=== PATIENT | female | born 1990 | race Two or more races ===

== ENCOUNTER 2019-05-11 10:06 | Emergency (ER) | payer OTHER ==
[~2019-05-11] VITALS: Ht 160 cm; Wt 97.5 kg
== END 2019-05-11 14:27 | disposition home or self-care (01) ==
LOC: ER 10:06
DX: K52.9 Noninfective gastroenteritis and colitis, unspecified (principal)

== ENCOUNTER → 2019-05-27 | Outpatient (CLI) | payer OTHER | END | disposition home or self-care (01) | LOC: PRENATAL 05-25 08:30 | DX: O99.212 Obesity complicating pregnancy, second trimester (principal) ==

== ENCOUNTER 2019-08-26 11:43 | Inpatient (IN) | payer OTHER ==
[~2019-08-26] VITALS: Ht 162.6 cm; Wt 3.2 kg
[2019-08-26] MEDS ORDERED: PRENATAL TABLE1 EAC1 (13:39)
[2019-09-01] MEDS ORDERED: PERCOCET 5-3251 EACH PO (06:56)
== END 2019-09-01 11:49 | disposition home or self-care (01) | DRG 788 ==
LOC: LDR 11:43 → OB/GYN 08-30 10:36
PROVIDERS: ADMIT Specialist
PROC: 4A1HXCZ Monitoring of Products of Conception, Cardiac Rate, External Approach (ICD-10-PCS; 2019-08-26)
PROC: BY4FZZZ Ultrasonography of Third Trimester, Single Fetus (ICD-10-PCS; 2019-08-27)
PROC: 10D00Z1 Extraction of Products of Conception, Low, Open Approach (ICD-10-PCS; principal; 2019-08-29 08:00)
DX: O82 Encounter for cesarean delivery without indication (principal); O14.14 Severe pre-eclampsia complicating childbirth; Z3A.36 36 weeks gestation of pregnancy; Z37.0 Single live birth; Z22.330 Carrier of Group B streptococcus

== ENCOUNTER 2021-09-14 20:16 | Emergency (ER) | payer OTHER ==
[~2021-09-14] VITALS: Ht 157.5 cm; Wt 97.5 kg
[~2021-09-14 20:16] MED LIST: PERCOCET 5-3251 EACH PO; PRENATAL TABLE1 EAC1
== END 2021-09-14 22:49 | disposition home or self-care (01) ==
LOC: ER 20:16
DX: N83.202 Unspecified ovarian cyst, left side (principal); N83.201 Unspecified ovarian cyst, right side

== ENCOUNTER 2022-11-04 09:23 | Emergency (ER) | payer OTHER ==
[~2022-11-04] VITALS: Ht 160 cm; Wt 98.9 kg
== END 2022-11-04 14:23 | disposition home or self-care (01) ==
LOC: ER 09:23
DX: O26.891 Other specified pregnancy related conditions, first trimester (principal); Z3A.11 11 weeks gestation of pregnancy; B34.9 Viral infection, unspecified; Z88.6 Allergy status to analgesic agent; Z20.822 Contact with and (suspected) exposure to COVID-19

== ENCOUNTER 2023-01-03 07:53 | Outpatient (CLI) | payer OTHER | END 2023-01-03 09:15 | disposition home or self-care (01) | LOC: PRENATAL 07:53 | PROVIDERS: ATTEND Obstetrics & Gynecology Maternal & Fetal Medicine | DX: O35.9XX0 Maternal care for (suspected) fetal abnormality and damage, unspecified, not applicable or unspecified (principal); O35.3XX0 Maternal care for (suspected) damage to fetus from viral disease in mother, not applicable or unspecified; O09.219 Supervision of pregnancy with history of pre-term labor, unspecified trimester; O14.90 Unspecified pre-eclampsia, unspecified trimester; Z3A.20 20 weeks gestation of pregnancy ==

== ENCOUNTER 2023-01-22 17:32 | Outpatient (CLI) | payer OTHER | END 2023-01-23 09:13 | disposition home or self-care (01) | LOC: OBS/DEL 17:32 | PROVIDERS: ATTEND Specialist | DX: O26.892 Other specified pregnancy related conditions, second trimester (principal); R10.2 Pelvic and perineal pain; Z3A.23 23 weeks gestation of pregnancy; Z88.6 Allergy status to analgesic agent ==

== ENCOUNTER 2023-02-12 21:55 | Outpatient (CLI) | payer OTHER ==
[2023-02-12] MEDS ORDERED: PRENATAL TABLE1 EAC1 PO (23:05)
[2023-02-13] MEDS ORDERED: FERROUS SULFAT325 MG PO (06:20)
== END 2023-02-13 08:03 | disposition home or self-care (01) ==
LOC: OBS/DEL 21:55
PROVIDERS: ATTEND Specialist
DX: O26.92 Pregnancy related conditions, unspecified, second trimester (principal); Z3A.26 26 weeks gestation of pregnancy; R10.2 Pelvic and perineal pain; Z88.6 Allergy status to analgesic agent; W18.39XA Other fall on same level, initial encounter; Y93.89 Activity, other specified; Y92.89 Other specified places as the place of occurrence of the external cause; Y99.8 Other external cause status

== ENCOUNTER 2023-03-28 08:52 | Outpatient (CLI) | payer OTHER ==
[~2023-03-28 08:52] MED LIST changes: +FERROUS SULFAT325 MG PO; +PRENATAL TABLE1 EAC1 PO
== END 2023-03-28 10:00 | disposition home or self-care (01) ==
LOC: PRENATAL 08:52
PROVIDERS: ATTEND Obstetrics & Gynecology Maternal & Fetal Medicine
DX: O26.849 Uterine size-date discrepancy, unspecified trimester (principal); O34.219 Maternal care for unspecified type scar from previous cesarean delivery; O36.8199 Decreased fetal movements, unspecified trimester, other fetus; O35.9XX0 Maternal care for (suspected) fetal abnormality and damage, unspecified, not applicable or unspecified; O35.3XX0 Maternal care for (suspected) damage to fetus from viral disease in mother, not applicable or unspecified; Z3A.32 32 weeks gestation of pregnancy

== ENCOUNTER 2023-04-23 10:09 | Inpatient (IN) | payer OTHER ==
[~2023-04-23] VITALS: Ht 162.6 cm; Wt 3.6 kg
== END 2023-05-04 12:28 | disposition home or self-care (01) | DRG 785 ==
LOC: LDR 05-01 08:50 → O/R 05-01 08:50 → OB/GYN 05-01 15:34 → SURG 05-09 10:09 → OB/GYN 05-09 10:33
PROVIDERS: ADMIT Specialist; ATTEND Specialist
PROC: 0UB70ZZ Excision of Bilateral Fallopian Tubes, Open Approach (ICD-10-PCS; 2023-05-01)
PROC: 4A1HXCZ Monitoring of Products of Conception, Cardiac Rate, External Approach (ICD-10-PCS; 2023-05-01)
PROC: 10D00Z1 Extraction of Products of Conception, Low, Open Approach (ICD-10-PCS; principal; 2023-05-01 12:45)
DX: O32.1XX0 Maternal care for breech presentation, not applicable or unspecified (principal); O34.211 Maternal care for low transverse scar from previous cesarean delivery; Z3A.37 37 weeks gestation of pregnancy; Z37.0 Single live birth; Z30.2 Encounter for sterilization

== ENCOUNTER → 2025-04-19 | Emergency (ER) | payer OTHER ==
[~2025-04-19] VITALS: Ht 162.6 cm; Wt 93.0 kg
[~2025-04-19] MED LIST changes: +BENZONATATE 200 MG CAPSULE PO ONE; +BENZONATATE200 M1 PO; +LEVALBUTER0.63 MG/3 IH; +METHYLPREDNISOLONE SOD SUCC 125 MG VIAL IM ONE; +OSEL75CA PO; +PEPCID AC20 MG PO
[2025-04-19 13:11] LABS: BASO % 0.5 % (0.1-1.2); EOS # 0.02 (0.04-0.54); EOS % 0.3 % (0.7-7.0); LYMPH # 0.37 (1.18-3.74); LYMPH % 6.1 % (19.3-53.1); MEAN PLATELET VOLUME 10.80 fl (9.4-12.4); MONO # 0.56 (0.24-0.82); MONO % 9.2 % (4.7-12.5); NEUT # 5.10 (1.56-6.13); NEUT % 83.7 % (34.0-71.1); RED CELL DISTRIBUTION WIDTH 13.2 % (11.6-14.4)
[2025-04-19 13:42] LABS: ALT/SGPT 75.0 U/L (12-78); AST/SGOT 49.0 U/L (15-37); BILIRUBIN TOTAL 0.42 mg/dL (0.3-1.2); BUN CREA RATIO 6.0 (7.0-25.0); CREATININE SERUM 0.79 mg/dL (0.55-1.02); GFR 82.35; GLOBULINA 3.6 G/DL (2.4-3.5); GLUCOSE FASTING 122.0 mg/dL (65-100); OSMOLALITY SERUM 272.0 MOSM/KG (275-295)
[2025-04-19 13:57] LABS: COVID-19 AG NEGATIVE (NEGATIVE)
== END | disposition home or self-care (01) ==
LOC: ER 10:12
PROVIDERS: General Practice
DX: J11.1 Influenza due to unidentified influenza virus with other respiratory manifestations (principal); R05.8 Other specified cough; M94.0 Chondrocostal junction syndrome [Tietze]; R42 Dizziness and giddiness; Z88.6 Allergy status to analgesic agent

== ENCOUNTER 2025-05-24 19:31 | Emergency (ER) | payer OTHER ==
[~2025-05-24] VITALS: Ht 162.6 cm; Wt 104.3 kg
[~2025-05-24 19:31] MED LIST changes: -BENZONATATE 200 MG CAPSULE PO ONE; -METHYLPREDNISOLONE SOD SUCC 125 MG VIAL IM ONE
[2025-05-24] MEDS ORDERED: ORPHENADRINE CITRATE 30 MG/ML AMPUL IM STA (20:00)
[2025-05-24] MEDS ORDERED: NORFLEX100MG PO (20:57)
== END 2025-05-24 21:21 | disposition home or self-care (01) ==
LOC: ER 19:31
DX: S39.82XA Other specified injuries of lower back, initial encounter (principal); V49.49XA Driver injured in collision with other motor vehicles in traffic accident, initial encounter; Y93.89 Activity, other specified; Y92.413 State road as the place of occurrence of the external cause; Z88.6 Allergy status to analgesic agent